=== PATIENT | male | born 1940 | race Caucasian/White ===

== ENCOUNTER 2017-09-26 19:58 | Emergency (ER) | payer MEDICARE ==
[~2017-09-26] VITALS: Ht 182.9 cm; Wt 94.0 kg
[~2017-09-26 19:58] MED LIST: AMLO5TAB22 PO; ASPI81 PO; BENZ100 PO; FURO20 PO; HYDR-2768 PO; LEVA750T9 PO; LOSA50TA PO; NEUR300C PO; PRAV20 PO; PRIM50 PO
[2017-09-26] MEDS ORDERED: LOSA50TA PO (20:06)
[2017-09-26] MEDS ORDERED: ASPI-516 CHEW (20:06)
[2017-09-26] MEDS ORDERED: HYDR25TA5 PO (20:06)
[2017-09-26] MEDS ORDERED: GABA600T PO (20:06)
[2017-09-26] MEDS ORDERED: FURO1TAB62 PO (20:06)
[2017-09-26] MEDS ORDERED: PRAV80TA2 PO (20:06)
[2017-09-26] MEDS ORDERED: PRIM50TA5 PO (20:06)
[2017-09-26] MEDS ORDERED: AMLO2.5T PO (20:06)
[2017-09-26 20:07] VITALS: BP 160/88; PULSE 81; RESP 16; TEMP 97.9; O2SAT 97
--- NOTE | 2017-09-26 20:32 | PD ---
HPI . Hemoptysis Chief Complaint: Bleeding Time Seen by Provider: 20:06 Travel History International Travel<30 days: No Contact w/Intl Traveler<30days: No Traveled to known affect area: No History of Present Illness HPI Patient presents with chief complaint of hemoptysis. Onset was just prior to presentation. It has now resolved. The patient reports a paroxysmal coughing which was followed by the hemoptysis. He states that he has not been running a fever. He has no shortness of breath. He had not had a cough prior to the paroxysmal coughing just prior to presentation. He does not take any anticoagulant. He is on aspirin. No obvious modifying factors. PFSH Past Medical History High Cholesterol: Yes Coronary Artery Disease: Yes Diminished Hearing: Yes Hypertension: Yes Tetanus Vaccination: < 5 Years Influenza Vaccination: Yes Past Surgical History Abdominal Surgery: Yes (2001 HERNIA) Cardiac Surgery: Yes (1986 CABG) Coronary Artery Bypass Graft: Yes (1986) Genitourinary Surgery: Yes (2003 PROSTATE) Oral Surgery: Yes (right fibula repair) Pacemaker: No Other Surgery: Yes Social History Alcohol Use: Yes (DAILY GLASS OF WINE) Tobacco Use: No Substance Use: No Allergies-Medications (Allergen,Severity, Reaction): Coded Allergies: codeine (Unverified Allergy, Severe, SKIN TURNS RED/SWELLING, 09/26/17) latex (Unverified Allergy, Severe, SEVERE RASH, 09/26/17) indomethacin (Unverified Adverse Reaction, Intermediate, NAUSEA, 09/26/17) Reported Meds & Prescriptions Reported Meds & Active Scripts Active Reported Amlodipine (Amlodipine Besylate) 2.5 Mg Tab 2.5 Mg PO DAILY Aspirin 81 Mg Chew 162 Mg CHEW DAILY Hydrochlorothiazide 25 Mg Tab 25 Mg PO DAILY Primidone 50 Mg Tab 75 Mg PO BID Gabapentin 600 Mg Tab 1,200 Mg PO BID Pravastatin 80 Mg Tab 80 Mg PO DAILY Losartan (Losartan Potassium) 50 Mg Tab 50 Mg PO DAILY Lasix (Furosemide) 20 Mg Tab 20 Mg PO DAILY Review of Systems Except as stated in HPI: all other systems reviewed are Neg General / Constitutional: No: Fever, Chills, Weight Loss Cardiovascular: No: Chest Pain or Discomfort Respiratory: No: Shortness of Breath Physical Exam Narrative GENERAL: Awake and alert and in no acute distress. SKIN: Warm and dry. Good color. He has an abrasion on his right ross. HEAD: Normocephalic/atraumatic. EYES: Pupils are equal. Extraocular movements are intact. ENT: He has a black stain on the posterior tongue. No active bleeding in the oropharynx. NECK: Normal range of motion. CARDIOVASCULAR: Regular rate and rhythm. Heart sounds are normal. RESPIRATORY: Nonlabored respirations. Lungs are clear with full air movement throughout. MUSCULOSKELETAL: Atraumatic. NEUROLOGICAL: Nonfocal. PSYCHIATRIC: Appropriate mood and affect. Data Data Last Documented VS Vital Signs Date Time Temp Pulse Resp B/P (MAP) Pulse Ox O2 Delivery O2 Flow Rate FiO2 09/26/17 21:26 78 16 109/69 (82) 96 Room Air 09/26/17 20:07 97.9 Orders Orders Chest, Pa & Lat (09/26/17 20:28) [facility] Medical Decision Making Medical Screen Exam Complete: Yes Emergency Medical Condition: Yes Differential Diagnosis My differential diagnosis of hemoptysis includes but is not limited to bronchitis, pneumonia, lung cancer, coagulopathy Narrative Course Patient presents with an episode of hemoptysis. He is not on an anticoagulant. I have ordered a chest x-ray. CXR neg. the chest x-ray was independently viewed by me. Diagnosis Primary Impression: Hemoptysis Patient Instructions: Acute Hemoptysis (DC), General Instructions Disposition: 01 DISCHARGE HOME Condition: Stable Jailene Santiago MD Sep 26, 2017 20:32
--- NOTE | 2017-09-26 21:24 | RADRPT ---
EXAM DATE/TIME: 09/26/2017 20:48 [facility] COMPARISON: No previous studies available for comparison. INDICATIONS : Short of breath and coughing up blood since this morning. MEDICAL HISTORY : None. SURGICAL HISTORY : CABG. ENCOUNTER: Initial ACUITY: 1 day PAIN SCORE: 0/10 LOCATION: Bilateral chest FINDINGS: The heart is top normal size. Median sternotomy wires are noted status post cardiac surgery. The pulm onary vascular pattern is normal. The lungs are clear. CONCLUSION: No acute cardiopulmonary disease. Jose Carlos Ramírez MD on September 26, 2017 at 21:19 Board Certified Radiologist. This report was verified electronically.
[2017-09-26 21:26] VITALS: BP 109/69; PULSE 78; RESP 16; O2SAT 96
== END 2017-09-26 22:06 | disposition home or self-care (01) ==
LOC: PHED 19:58
DX: R04.2 Hemoptysis (principal); E78.00 Pure hypercholesterolemia, unspecified; I10 Essential (primary) hypertension; I25.10 Atherosclerotic heart disease of native coronary artery without angina pectoris; Z79.82 Long term (current) use of aspirin
CPT/HCPCS: 71020; 99283